=== PATIENT | female | born 1985 | race Caucasian/White ===

== ENCOUNTER 2017-10-09 19:09 | Emergency (ER) | payer MEDICAID ==
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
== END 2017-10-09 21:15 | disposition home or self-care (01) ==
LOC: ER 19:09
DX: F41.9 Anxiety disorder, unspecified (principal); F17.200 Nicotine dependence, unspecified, uncomplicated; Z88.0 Allergy status to penicillin; Z88.1 Allergy status to other antibiotic agents
CPT/HCPCS: Z7502